=== PATIENT | female | born 1985 | race Caucasian/White ===

== ENCOUNTER 2017-08-04 13:50 | Emergency (ER) | payer SELFPAY ==
[~2017-08-04] VITALS: Ht 170.2 cm; Wt 127.3 kg
[2017-08-04 14:21] VITALS: Ht 170.2 cm; Wt 127.3 kg
[2017-08-04] MEDS ORDERED: NEURONTIN 300300 MG PO (14:24)
[2017-08-04] MEDS ORDERED: ZOLOFT100 MG PO (14:24)
[2017-08-04] MEDS ORDERED: BUTALB-APAP-CA1 EACH PO (14:25)
[2017-08-04] MEDS ORDERED: SYNTHROID50 MCG PO (14:25)
[2017-08-04] MEDS ORDERED: PHENERGAN25 M1 PO (14:26)
[2017-08-04] MEDS ORDERED: ATIVAN1 MG PO (14:26)
[2017-08-04] MEDS ORDERED: ZOFRAN ODT4 MG/UDTAB PO (16:21)
[2017-08-04] MEDS ORDERED: NORCO 7.5/325 T1 TA1 PO (16:21)
[2017-08-04 16:45] VITALS: BP 132/80
[2017-10-23] MEDS ORDERED: KLONOPIN0.5 MG PO (15:10)
[2017-10-25 08:52] VITALS: Ht 170.2 cm; Wt 127.3 kg
== END 2017-08-04 17:03 | disposition home or self-care (01) ==
LOC: D.ER 13:50
DX: G43.909 Migraine, unspecified, not intractable, without status migrainosus (principal); F17.200 Nicotine dependence, unspecified, uncomplicated

== ENCOUNTER 2017-10-25 06:59 | Day surgery (SDC) | payer MEDICAID ==
[~2017-10-25] VITALS: Ht 167.6 cm; Wt 117.0 kg
--- NOTE | ~2017-10-25 | OP ---
PATIENT NAME: CRISTHIAN MCGARRY MEDICAL RECORD: [id number] :81 LOCATION:D.OPS ADMISSION DATE: SURGEON: TRAE ALY MD DATE OF OPERATION: 10/25/2017 PREOPERATIVE DIAGNOSES: 1. Biliary dyskinesia. 2. Morbid obesity. 3. Anxiety disorder. POSTOPERATIVE DIAGNOSES: 1. Biliary dyskinesia. 2. Morbid obesity. 3. Anxiety disorder. PROCEDURE: Laparoscopic cholecystectomy. SURGEON: Trae Aly MD REPORT OF PROCEDURE: The patient's abdomen was prepped and draped in sterile fashion. A cutdown was made on the superior aspect of the umbilicus. The 0 Vicryls were placed in the fascia bilaterally and the fascia was incised with 15-blade. I then bluntly entered the peritoneal cavity and placed a 12-mm Hill port. Under direct visualization, a 5-mm trocar was placed in the epigastrium and 2 more 5-mm trocars were placed in the right subcostal region. The gallbladder was grasped and elevated. The cystic artery and cystic duct were dissected free and these were clipped proximally and distally and ligated in a standard fashion. The gallbladder was taken off the liver bed using electrocautery and placed into the right upper quadrant. Any bleeding from the liver bed was then treated with electrocautery. We irrigated out the right upper quadrant and assured there was no sign of any bleeding or bile leakage. At this point, the ports and insufflation were then removed and the gallbladder was taken out through the umbilicus. The umbilical fascia was closed with interrupted 0 Vicryls times 3. The wounds were then irrigated out with normal saline and infused with 10 mL of 0.25% Marcaine with epinephrine. The skin incisions were all closed with subcutaneous 5-0 Monocryl and dressed appropriately. COMPLICATIONS: None. CONDITION: Stable. ANESTHESIA: General endotracheal and local. BLOOD LOSS: Minimal. TRANSINT:[id number] Voice Confirmation ID: [id number] DOCUMENT ID: [id number] OPERATIVE REPORT [id number] MALGORZATACRISTHIAN TRAE ALY MD at [id number] CC: TONIO LIVINGSTON [id number] DICTATION DATE: 10/25/17 130 BICYCLE MESSENGER: 10/25/[address] [facility] 10/25/17 [facility] [address] [facility] [place] [address]
[~2017-10-25 06:59] MED LIST: ATIVAN1 MG PO; BUTALB-APAP-CA1 EACH PO; KLONOPIN0.5 MG PO; NEURONTIN 300300 MG PO; NORCO 7.5/325 T1 TA1 PO; PHENERGAN25 M1 PO; SYNTHROID50 MCG PO; ZOFRAN ODT4 MG/UDTAB PO; ZOLOFT100 MG PO
[2017-10-25 07:14] LABS: BASOPHILS 0.6 % (0-2); EOSINOPHILS 7.4 % (0-7); HEMATOCRIT 37.5 % (36.0-48.0); HEMOGLOBIN 12.4 g/dL (12-16); IMMATURE GRANULOCYTES 0.3 % (0-5); LYMPHOCYTES 38.1 % (15-50); MCH 28.6 pg (26.0-34.0); MCHC 33.1 g/dL (31.0-37.0); MCV 86.4 fL (80.0-100.0); MONOCYTES 6.4 % (2-11); NEUTROPHILS 47.2 % (40-80); PLATELET COUNT 230 10x3/uL (130-400); RBC 4.34 10x6/uL (4.00-5.40); RDW 17.5 % (11.5-14.5); WBC 9.3 10x3/uL (4.8-10.8)
[2017-10-25 07:22] LABS: CALC OSMOLALITY 280 mosm/kg (275-300); CALCIUM 8.4 mg/dL (8.5-10.1); CARBON DIOXIDE 30.2 mmol/L (21.0-32.0); CHLORIDE - SERUM 105 mmol/L (98-107); CREATININE - SERUM 0.8 mg/dL (0.6-1.3); GLUCOSE 98 mg/dL (74-106); POTASSIUM - SERUM 4.1 mmol/L (3.5-5.1); SODIUM 141 mmol/L (136-145); UREA NITROGEN 13 mg/dL (7-18); eGFR NON AFRICAN AMERICAN 87 mL/min (90-120)
[2017-10-25 08:52] VITALS: BP 103/64; Ht 167.6 cm; Wt 117.0 kg
[2017-10-25 09:53] LABS: HCG URINE NEGATIVE (NEGATIVE)
[2017-10-25] MEDS ORDERED: NORCO 10-325 TA1 TAB PO (13:02)
== END 2017-10-25 16:00 | disposition home or self-care (01) ==
LOC: D.OPS 06:59 → D.PAN 10:30 → D.OPS 10:30
PROVIDERS: Surgery
DX: K82.8 Other specified diseases of gallbladder (principal); K82.4 Cholesterolosis of gallbladder; E66.01 Morbid (severe) obesity due to excess calories; F41.9 Anxiety disorder, unspecified; Z01.812 Encounter for preprocedural laboratory examination; Z68.41 Body mass index [BMI] 40.0-44.9, adult

== ENCOUNTER → 2017-11-07 16:20 | Outpatient (CLI) | payer MEDICAID ==
[2017-10-25 08:52] VITALS: BMI 41.7
[~2017-11-07 16:20] MED LIST changes: +NORCO 10-325 TA1 TAB PO
== END | disposition home or self-care (01) ==
LOC: D.CT 16:20
DX: R10.11 Right upper quadrant pain (principal)